=== PATIENT | female | born 1965 | race Caucasian/White ===

== ENCOUNTER → 2016-06-24 | Outpatient (CLI) | payer OTHER ==
[~2016-06-24] MED LIST: ALLE50TA PO; AMLO5TAB2 PO; AMLO5TAB22 PO; DIPH2%T PO; HYDR12.56 PO; HYDR12.57 PO; IBUP800T23 PO; LOSA50TA PO; MULT-65 PO; MULTTAB67 PO; RANI150 PO; RANI150T PO
[2016-06-24 11:50] LABS: AUTOMATED NEUTROPHIL # 4.7 TH/MM3 (1.8-7.7); BASOPHIL % 0.4 % (0.0-2.0); EOSINOPHIL # 0.2 TH/MM3 (0-0.4); EOSINOPHIL % 2.5 % (0.0-4.0); HEMATOCRIT 43.7 % (35.0-46.0); HEMO FLAGS DIFF FINAL; LYMPH % 32.3 % (9.0-44.0); LYMPHOCYTE # 2.7 TH/MM3 (1.0-4.8); MEAN CELL VOLUME 94.6 FL (80.0-100.0); MEAN CORPUSCULAR HEMOGLOBIN 30.5 PG (27.0-34.0); MEAN CORPUSCULAR HGB CONC 32.2 % (32.0-36.0); MONO % 7.4 % (0.0-8.0); NEUT % 57.4 % (16.0-70.0); PLATELET COUNT 223 TH/MM3 (150-450); RED BLOOD COUNT 4.62 MIL/MM3 (4.00-5.30); RED CELL DISTRIBUTION WIDTH 12.6 % (11.6-17.2); WHITE BLOOD COUNT 8.2 TH/MM3 (4.0-11.0)
[2016-06-24 13:11] LABS: ALKALINE PHOSPHATASE 91 U/L (45-117); ALT (GPT) 26 U/L (10-53); ANION GAP 10 MEQ/L (5-15); AST (GOT) 13 U/L (15-37); BICARBONATE 25.3 MEQ/L (21.0-32.0); BLOOD UREA NITROGEN 14 MG/DL (7-18); CHLORIDE 101 MEQ/L (98-107); FREE T4 1.19 NG/DL (0.76-1.46); GLOMERULAR FILTRATION RATE 66 ML/MIN (>89); GLUCOSE,FASTING 104 MG/DL (74-99); HDL CHOLESTEROL 44.4 MG/DL (40.0-60.0); LDL CHOLESTEROL 91 MG/DL (0-99); POTASSIUM 3.6 MEQ/L (3.5-5.1); SODIUM (NA) 136 MEQ/L (136-145); TOTAL BILIRUBIN ADULT 0.3 MG/DL (0.2-1.0)
[2016-06-24 13:11] LABS: BLOOD, URINE NEG (NEG); GLUCOSE,URINE NEG (NEG); HYALINE CAST, URINE 4 /lpf (RARE); KETONE, URINE NEG (NEG); NITRITE,URINE NEG (NEG); PH, URINE 5.5 (5.0-8.5); SQUAMOUS EPITHELIAL CELL URINE 1 /hpf (0-5); URINE COLOR YELLOW (YELLW/STRAW)
[2016-06-24 13:12] LABS: COMMENT (UR) CULT NOT INDICATED; CULTURE IF INDICATED CULT NOT INDICATED
== END ==
LOC: OLAB 11:26
PROVIDERS: ATTEND Nurse Practitioner Family
DX: I10 Essential (primary) hypertension (principal); F41.9 Anxiety disorder, unspecified; Z68.35 Body mass index [BMI] 35.0-35.9, adult
CPT/HCPCS: 80053; 80061; 81001; 84439; 84443; 84480; 85025

== ENCOUNTER 2016-11-08 15:24 | Observation (INO) | payer OTHER ==
[~2016-11-08] VITALS: Ht 172.7 cm; Wt 90.0 kg
[2016-11-08] VITALS (8 sets, daily range): BP systolic 132–203; BP diastolic 70–102; PULSE 80–117; RESP 18–20; TEMP 98.2–98.4; O2SAT 95–99
[~2016-11-08 15:24] MED LIST changes: -AMLO5TAB22 PO; -DIPH2%T PO; -HYDR12.56 PO; -IBUP800T23 PO; -MULT-65 PO; -RANI150 PO
--- NOTE | 2016-11-08 15:56 | PD ---
HPI Chief Complaint: Respiratory Distress Time Seen by Provider: 15:55 Travel History International Travel<30 days: No Contact w/Intl Traveler<30days: No Traveled to known affect area: No History of Present Illness HPI 51-year-old female with history of hypertension, presents to emergency department for evaluation of severe, sharp, stabbing, excruciating chest pain. Patient states it woke her up at 4 AM this morning from her sleep. She states she was able to go back to sleep until 6 AM but has returned and worsened throughout the course of the day. She states it starts it is mostly substernal but will occasionally radiate to each of her shoulders or to her right shoulder blade. States it is exacerbated with inspiration and mildly relieved with expiration. Denies any fever or chills. No recent illnesses. No nausea or vomiting. Patient does not recall any episodes of lightheadedness or nausea associated with this. States it is the worst pain she has ever felt and she has never experienced anything like this. No history of DVT. No recent travel. Patient states she does smoke tobacco cigarettes 1-1/2 packs per day. States that her father had had a heart attack in the past as well as her brother. She has no other symptoms to report. PFSH Past Medical History Diminished Hearing: No Headaches: Yes Hypertension: Yes Tetanus Vaccination: < 5 Years Influenza Vaccination: Yes ?: Not LMP: 10/2016 Menopausal: Yes : 3 Para: 2 Social History Alcohol Use: Yes (rarely) Tobacco Use: Yes (1 ppd) Substance Use: No Allergies-Medications (Allergen,Severity, Reaction): Coded Allergies: Lisinopril (Verified Allergy, Intermediate, Cough, 07/13/16) Reported Meds & Prescriptions Reported Meds & Active Scripts Active Hydrochlorothiazide 12.5 Mg Cap 12.5 Mg PO DAILY Losartan (Losartan Potassium) 50 Mg Tab 50 Mg PO DAILY Amlodipine (Amlodipine Besylate) 5 Mg Tab 5 Mg PO DAILY Reported Ranitidine (Ranitidine HCl) 150 Mg Tab 150 Mg PO BID Multiple Vitamin 1 Tab 1 Tab PO DAILY Review of Systems Except as stated in HPI: all other systems reviewed are Neg Physical Exam Narrative GENERAL: Well-nourished female patient, sitting up in bed, in mild distress secondary to pain SKIN: Focused skin assessment warm/dry. HEAD: Atraumatic. Normocephalic. EYES: Pupils equal and round. No scleral icterus. No injection or drainage. ENT: No nasal bleeding or discharge. Mucous membranes pink and moist. NECK: Trachea midline. No JVD. CARDIOVASCULAR: Regular rate and rhythm. No murmur appreciated. RESPIRATORY: No accessory muscle use. Clear to auscultation. Breath sounds equal bilaterally. GASTROINTESTINAL: Abdomen soft, non-tender, nondistended. Hepatic and splenic margins not palpable. MUSCULOSKELETAL: No obvious deformities. No clubbing. No cyanosis. No edema. NEUROLOGICAL: Awake and alert. No obvious cranial nerve deficits. Motor grossly within normal limits. Normal speech. PSYCHIATRIC: Appropriate mood and affect; insight and judgment normal. Data Data Last Documented VS Vital Signs Date Time Temp Pulse Resp B/P Pulse Ox O2 Delivery O2 Flow Rate FiO2 11/08/16 18:49 16 11/08/16 18:35 90 176/79 98 Room Air 11/08/16 15:27 98.2 Orders Electrocardiogram (11/08/16 15:59) Basic Metabolic Panel (Bmp) (11/08/16 15:59) Ckmb (Isoenzyme) Profile (11/08/16 15:59) Complete Blood Count With Diff (11/08/16 15:59) D-Dimer (11/08/16 15:59) Magnesium (Mg) (11/08/16 15:59) Prothrombin Time / Inr (Pt) (11/08/16 15:59) Act Partial Throm Time (Ptt) (11/08/16 15:59) Troponin I (11/08/16 15:59) Chest, Single Ap (11/08/16 15:59) Ecg Monitoring (11/08/16 15:59) Bilateral Bp Monitoring (11/08/16 15:59) Iv Access Insert/Monitor (11/08/16 15:59) Oximetry (11/08/16 15:59) Oxygen Administration (11/08/16 15:59) Aspirin Chew (Aspirin Chew) (11/08/16 16:00) Sodium Chloride 0.9% Flush (Ns Flush) (11/08/16 16:00) Nitroglycerin Sl (Nitrostat Sl) (11/08/16 16:00) Sodium Chlorid 0.9% 500 Ml Inj (Ns 500 M (11/08/16 16:00) Morphine Inj (Morphine Inj) (11/08/16 16:15) Ondansetron Inj (Zofran Inj) (11/08/16 16:15) Ct Pulmonary Angiogram (11/08/16 ) Electrocardiogram (11/08/16 ) Morphine Inj (Morphine Inj) (11/08/16 18:00) Iohexol 350 Inj (Omnipaque 350 Inj) (11/08/16 18:17) Admit Order (Ed Use Only) (11/08/16 18:57) Activity Bed Rest With Brp (11/08/16 18:57) Vital Signs (Adult) Q4H (11/08/16 18:57) Cardiac Rhythm .As Directed (11/08/16 18:57) Notify Dr: Other .PRN (11/08/16 18:57) Notify Parameters (11/08/16 18:57) Resp Oxygen Nasal Cannula (11/08/16 ) Diet Npo (11/09/16 Breakfast) Ckmb (Isoenzyme) Profile (11/08/16 19:30) Ckmb (Isoenzyme) Profile (11/08/16 22:30) Troponin I (11/08/16 19:30) Troponin I (11/08/16 22:30) Electrocardiogram (11/08/16 19:30) Electrocardiogram (11/08/16 22:30) ^ Obtain (11/08/16 18:57) Sodium Chloride 0.9% Flush (Ns Flush) (11/08/16 19:00) Sodium Chloride 0.9% Flush (Ns Flush) (11/08/16 21:00) Acetaminophen (Tylenol) (11/08/16 19:00) Ondansetron Inj (Zofran Inj) (11/08/16 19:00) Nitroglycerin Sl (Nitrostat Sl) (11/08/16 19:00) Hide Puller / Telemetry LINO.Q8H (11/08/16 18:57) Labs Laboratory Tests Test 11/08/16 11/08/16 16:30 17:00 White Blood Count 13.3 TH/MM3 Red Blood Count 4.92 MIL/MM3 Hemoglobin 16.0 GM/DL Hematocrit 48.0 % Mean Corpuscular Volume 97.4 FL Mean Corpuscular Hemoglobin 32.5 PG Mean Corpuscular Hemoglobin 33.4 % Concent Red Cell Distribution Width 13.6 % Platelet Count 147 TH/MM3 Mean Platelet Volume 9.9 FL Neutrophils (%) (Auto) 68.5 % Lymphocytes (%) (Auto) 22.0 % Monocytes (%) (Auto) 8.3 % Eosinophils (%) (Auto) 0.8 % Basophils (%) (Auto) 0.4 % Neutrophils # (Auto) 9.1 TH/MM3 Lymphocytes # (Auto) 2.9 TH/MM3 Monocytes # (Auto) 1.1 TH/MM3 Eosinophils # (Auto) 0.1 TH/MM3 Basophils # (Auto) 0.1 TH/MM3 CBC Comment AUTO DIFF Differential Comment AUTO DIFF CONFIRMED Platelet Estimate LOW Platelet Morphology Comment NORMAL Red Cell Morphology Comment NORMAL Sodium Level 139 MEQ/L Potassium Level 3.5 MEQ/L Chloride Level 106 MEQ/L Carbon Dioxide Level 26.2 MEQ/L Anion Gap 7 MEQ/L Blood Urea Nitrogen 9 MG/DL Creatinine 0.74 MG/DL Estimat Glomerular Filtration 83 ML/MIN Rate Random Glucose 89 MG/DL Calcium Level 9.2 MG/DL Magnesium Level 2.2 MG/DL Total Creatine Kinase 85 U/L Troponin I LESS THAN 0.02 NG/ML Prothrombin Time 10.8 SEC Prothromb Time International 1.0 RATIO Ratio Activated Partial 31.9 SEC Thromboplast Time D-Dimer Quantitative (PE/DVT) 0.46 MG/L FEU [facility] Medical Decision Making Medical Screen Exam Complete: Yes Emergency Medical Condition: Yes Medical Record Reviewed: Yes Differential Diagnosis ACS versus chest wall pain versus PE versus pleuritic pain versus neoplasm versus bronchospasm versus indigestion Narrative Course 51-year-old female presents to emergency department for evaluation chest pain. Patient appears uncomfortable and in mild distress secondary to pain. She is given sublingual nitroglycerin and aspirin here. EKG is without ST elevation or depression and reviewed by my attending physician Dr. Alfaro. She has also assessed the patient. CBC is with mild leukocytosis of 13.3, otherwise without acute concern. BMP is without acute concern. Troponin is less than 0.02. D- dimer is 0.46. I discussed the patient with my attending who agrees with the before with CT pulmonary angiogram. This is complete and shows no pulmonary embolus. Pulmonary arteries are prominent which can be seen with pulmonary arterial hypertension. Mild emphysema without infiltrate. Chest x-ray showed left basal atelectasis. Patient will be admitted to the chest pain center for further evaluation. She is counseled on smoking cessation. She is in agreement at this plan of care. Diagnosis Primary Impression: Chest pain Qualified Code: R07.9 - Chest pain, unspecified type Additional Impressions: Hypertension Qualified Code: I10 - Essential hypertension Tobacco dependency Admitting Information Admitting Physician Requests: Observation Condition: Stable Lauren Naranjo Nov 08, 2016 15:55
[2016-11-08] MEDS ORDERED: SODIUM CHLORIDE 0.9% FLUSH 10 ML FLUSH IVF PRN (16:00)
[2016-11-08] MEDS ORDERED: SODIUM CHLORID 0.9% 500 ML INJ 500 ML IV ONE (16:00)
[2016-11-08] MEDS ORDERED: NITROGLYCERIN 0.4 MG SL 25 TABS/BTL SL ONE (16:00)
[2016-11-08] MEDS ORDERED: ASPIRIN 81 MG CHEW TAB PO ONE (16:00)
[2016-11-08] MEDS ORDERED: MORPHINE SULFATE 4 MG/ML INJ IV PUSH ONE ×2 (16:15→18:00)
[2016-11-08] MEDS ORDERED: ONDANSETRON HCL 4 MG/2 ML VIAL IV PUSH ONE (16:15)
--- NOTE | 2016-11-08 16:26 | RADRPT ---
EXAM DATE/TIME: 11/08/2016 16:16 [facility] COMPARISON: No previous studies available for comparison. INDICATIONS : Chest Pain MEDICAL HISTORY : Hypertension. SURGICAL HISTORY : None. ENCOUNTER: Initial ACUITY: 1 day PAIN SCORE: 7/10 LOCATION: Bilateral chest FINDINGS: A single view of the chest demonstrates left basilar atelectasis. Cardiomegaly. Old right clavicle fr acture. Osseous structures are intact. CONCLUSION: 1. Left basal atelectasis. Gui Rios MD on November 08, 2016 at 16:24 Board Certified Radiologist. This report was verified electronically.
[2016-11-08 16:52] LABS: AUTOMATED NEUTROPHIL # 9.1 TH/MM3 (1.8-7.7); BASOPHIL # 0.1 TH/MM3 (0-0.2); BASOPHIL % 0.4 % (0.0-2.0); EOSINOPHIL # 0.1 TH/MM3 (0-0.4); EOSINOPHIL % 0.8 % (0.0-4.0); LYMPHOCYTE # 2.9 TH/MM3 (1.0-4.8); MEAN CELL VOLUME 97.4 FL (80.0-100.0); MEAN CORPUSCULAR HEMOGLOBIN 32.5 PG (27.0-34.0); MEAN CORPUSCULAR HGB CONC 33.4 % (32.0-36.0); MONO % 8.3 % (0.0-8.0); NEUT % 68.5 % (16.0-70.0); PLATELET COUNT 147 TH/MM3 (150-450); RED BLOOD COUNT 4.92 MIL/MM3 (4.00-5.30); RED CELL DISTRIBUTION WIDTH 13.6 % (11.6-17.2); WHITE BLOOD COUNT 13.3 TH/MM3 (4.0-11.0)
[2016-11-08 17:05] LABS: HEMO FLAGS AUTO DIFF
[2016-11-08 17:08] LABS: ANION GAP 7 MEQ/L (5-15); BICARBONATE 26.2 MEQ/L (21.0-32.0); BLOOD UREA NITROGEN 9 MG/DL (7-18); CHLORIDE 106 MEQ/L (98-107); GLOMERULAR FILTRATION RATE 83 ML/MIN (>89); MAGNESIUM 2.2 MG/DL (1.5-2.5); POTASSIUM 3.5 MEQ/L (3.5-5.1); SODIUM (NA) 139 MEQ/L (136-145)
[2016-11-08 17:13] LABS: CREATINE KINASE 85 U/L (26-192)
[2016-11-08 17:30] LABS: APTT (PATIENT) 31.9 SEC (24.3-30.1); PROTHROMBIN TIME - PATIENT 10.8 SEC (9.8-11.6)
[2016-11-08 17:55] LABS: PLATELET ESTIMATE SMEAR LOW (NORMAL); PLATELET MORPHOLOGY NORMAL (NORMAL); SCAN/DIFF AUTO DIFF CONFIRMED
[2016-11-08] MEDS ORDERED: IOHEXOL 350 MG/ML 10 ML VIAL (for RAD DIAG) IV ONE (18:17)
--- NOTE | 2016-11-08 18:35 | RADRPT ---
EXAM DATE/TIME: 11/08/2016 18:13 [facility] COMPARISON: No previous studies available for comparison. INDICATIONS : Chest pain with shortness of breath; rule out pulmonary embolus. IV CONTRAST: 100 cc Omnipaque 350 (iohexol) IV RADIATION DOSE: 23.19 CTDIvol (mGy) MEDICAL HISTORY : Hypertension. SURGICAL HISTORY : None. ENCOUNTER: Initial ACUITY: 1 day PAIN SCALE: 8/10 LOCATION: chest TECHNIQUE: Volumetric scanning of the chest was performed using a pulmonary embolism protocol MIP images were re constructed. Using automated exposure control and adjustment of the mA and/or kV according to patien t size, radiation dose was kept as low as reasonably achievable to obtain optimal diagnostic quality images. FINDINGS: PULMONARY ARTERIES: No filling defects are seen in the pulmonary arteries through the segmental level. Pulmonary arteries are prominent. LUNGS: There is no consolidation or pneumothorax . No concerning pulmonary nodule is visualized. Mild emphy sema. PLEURAE: There is no pleural thickening or pleural effusion. MEDIASTINUM: There is good visualization of the great vessels of the middle mediastinum. No evidence of mediastin al or hilar adenopathy/mass. Heart enlarged. MUSCULOSKELETAL: Within normal limits for patient age. MISCELLANEOUS: The visualized upper abdominal organs demonstrate no acute abnormality. CONCLUSION: 1. No pulmonary embolus. 2. Pulmonary arteries are prominent which can be seen with pulmonary arterial hypertension. 3. Mild emphysema without infiltrate. Gui Rios MD on November 08, 2016 at 18:30 Board Certified Radiologist. This report was verified electronically.
[2016-11-08] MEDS ORDERED: NITROGLYCERIN 0.4 MG SL 25 TABS/BTL SL PRN (19:00)
[2016-11-08] MEDS ORDERED: SODIUM CHLORIDE 0.9% FLUSH 10 ML FLUSH IV FLUSH PRN (19:00)
[2016-11-08] MEDS ORDERED: ACETAMINOPHEN 500 MG CPLT PO PRN (19:00)
[2016-11-08] MEDS ORDERED: ONDANSETRON HCL 4 MG/2 ML VIAL IV PRN (19:00)
[2016-11-08 20:56] LABS: CREATINE KINASE 68 U/L (26-192)
[2016-11-08] MEDS ORDERED: MORPHINE SULFATE 4 MG/ML INJ IV PRN (22:45)
[2016-11-08] MEDS ORDERED: ACETAMINOPHEN 325 MG TAB PO PRN (22:45)
[2016-11-08] MEDS: SODIUM CHLORIDE 0.9% FLUSH 10 ML FLUSH IV FLUSH SCH (22:45)
[2016-11-08] MEDS: LORazepam 0.5 MG TAB PO PRN (22:45)
[2016-11-08] MEDS: ACETAMINOPHEN/HYDROcodone 325 MG/7.5 MG TAB PO PRN (22:46)
[2016-11-08 23:20] LABS: CREATINE KINASE 58 U/L (26-192)
[2016-11-09 02:50] VITALS: PULSE 78
[2016-11-09] MEDS ORDERED: RESP: ALBUTEROL 2.5 MG/3 ML NEB (PRN) NEB (07:45)
--- NOTE | 2016-11-09 07:50 | HHI.HP ---
HPI Primary Care Physician Non-Staff Chief Complaint Chest pain History of Present Illness 51-year-old female with history of hypertension and current tobacco smoker presents to emergency room for further evaluation of chest pain. Onset yesterday morning states pain was so severe it woke her from sleep. Onset approximately 4 AM. Location described as "shoulder to shoulder, epigastric and mid chest area did not feel like indigestion." Hurt to move, hurts to take a deep breath. No associated symptoms of nausea, vomiting, or diaphoresis. Pain described as sharp, stabbing, constant pain. No known precipitating or relieving factors. Never had pain similar in the past. Review of Systems General: No fatigue,weakness, fever, chills, recent illness HEENT: No SHIRLEY, no vision changes, no nasal congestion or drainage, no dysphasia CV: As stated above. Chest discomfort has improved. No palpitations, intermittent leg pain, dizziness RESP: No SOB, cough, wheeze, or recent URI GI: No nausea or vomiting, bowel changes, diarrhea, constipation, pain, distention, melena, blood in the stool. No change in appetite, no unintentional weight gain or weight loss : No dysuria, urgency, frequency, hematuria, or history of kidney stones EXT: No lower leg edema, no paraesthesias MS: No discomfort or change in ROM NEURO: No change in memory, dizziness, difficulty with balance, LOC, motor/ sensory deficits PSYCH: Endorses anxiety for "some time." Endorses she has spoke with PCP regarding anxiety but is hesitant about taking an additional daily medication. 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 No depression or suicidal ideation. SKIN: No rashes, no concerning lesions Past Family Social History Allergies: Coded Allergies: Lisinopril (Verified Allergy, Intermediate, Cough, 07/13/16) Past Medical History Hypertension, GERD Reported Medications Active Hydrochlorothiazide 12.5 Mg Cap 12.5 Mg PO DAILY Losartan (Losartan Potassium) 50 Mg Tab 50 Mg PO DAILY Amlodipine (Amlodipine Besylate) 5 Mg Tab 5 Mg PO DAILY Ranitidine (Ranitidine HCl) 150 Mg Tab 150 Mg PO BID Multiple Vitamin 1 Tab 1 Tab PO DAILY Active Ordered Medications Current Medications Medications (Trade) Dose Ordered Sig/Erika Route Start Time Stop Time Status Last Admin (Tylenol) 500 mg Q4H PRN PO 11/08/16 19:00 (Zofran Inj) 4 mg Q6H PRN IV 11/08/16 19:00 (Nitrostat Sl) 0.4 mg Q5M PRN SL 11/08/16 19:00 (Tylenol) 650 mg Q6H PRN PO 11/08/16 22:45 ([place] 7.5-325 Mg) 1 tab Q6H PRN PO 11/08/16 22:45 11/08/16 22:46 (Morphine Inj) 2 mg Q2H PRN IV 11/08/16 22:45 (Ativan) 0.5 mg Q6H PRN PO 11/08/16 22:45 11/08/16 22:45 (Aspirin) 325 mg DAILY PO 11/09/16 09:00 Family History Positive for early onset cardiovascular disease. Father from [place] at age 44, brother from [place] age 49. Social History No known diabetes or hyperlipidemia. Endorses hypertension. Current smoker 1-1 1/2 pack daily. Denies any alcohol or illegal drug use. Endorses sedentary lifestyle. She is a registered nurse at [employer]. Past cardiac testing None Physical Exam Vital Signs Vital Signs Date Time Temp Pulse Resp B/P Pulse Ox O2 Delivery O2 Flow Rate FiO2 11/09/16 02:50 78 11/09/16 00:00 18 11/08/16 22:59 98.2 86 18 160/76 97 11/08/16 22:40 84 11/08/16 20:37 98.4 85 18 132/85 95 11/08/16 18:49 16 11/08/16 18:49 18 11/08/16 18:35 90 18 176/79 98 Room Air 11/08/16 17:57 85 174/81 11/08/16 17:50 80 20 151/70 98 Room Air 11/08/16 16:53 97 Room Air 11/08/16 15:41 Room Air 11/08/16 15:27 98.2 117 18 203/102 99 Room Air Physical Exam GENERAL: Alert WN, WD, NAD, pleasant, obese female HEAD: NC, AT EYES: Sclera clear, conjunctiva without injection NECK: Supple, no masses, trachea midline CV: RRR, without murmur, rub, gallop, no JVD, S1-S2 no S3-S4. RESP: Clear lungs throughout bilateral, no crackles, wheeze, rhonchi, symmetrical chest rise, nonlabored, able to speak in full sentences ABD: Soft, NT, ND, no masses, positive bowel tones EXT: Pulses +24, no dependent edema MS: Normal tone 4 extremities, nontender, no obvious deformities, full range of motion NEURO: CN II through CN XII grossly intact, motor strength 5/5, gait WNL PSYCH: A+O 3, pleasant affect, tearful at times during interview, appropriate speech, appropriate mood and affect, insight and judgment SKIN: Normal turgor, normal texture, no lesions, no rashes Laboratory Laboratory Tests Test 11/08/16 11/08/16 11/08/16 11/08/16 16:30 17:00 19:51 22:45 White Blood Count 13.3 Red Blood Count 4.92 Hemoglobin 16.0 Hematocrit 48.0 Mean Corpuscular Volume 97.4 Mean Corpuscular Hemoglobin 32.5 Mean Corpuscular Hemoglobin 33.4 Concent Red Cell Distribution Width 13.6 Platelet Count 147 Mean Platelet Volume 9.9 Neutrophils (%) (Auto) 68.5 Lymphocytes (%) (Auto) 22.0 Monocytes (%) (Auto) 8.3 Eosinophils (%) (Auto) 0.8 Basophils (%) (Auto) 0.4 Neutrophils # (Auto) 9.1 Lymphocytes # (Auto) 2.9 Monocytes # (Auto) 1.1 Eosinophils # (Auto) 0.1 Basophils # (Auto) 0.1 CBC Comment AUTO DIFF Differential Comment AUTO DIFF CONFIRMED Platelet Estimate LOW Platelet Morphology Comment NORMAL Red Cell Morphology Comment NORMAL Sodium Level 139 Potassium Level 3.5 Chloride Level 106 Carbon Dioxide Level 26.2 Anion Gap 7 Blood Urea Nitrogen 9 Creatinine 0.74 Estimat Glomerular Filtration 83 Rate Random Glucose 89 Calcium Level 9.2 Magnesium Level 2.2 Total Creatine Kinase 85 68 58 Troponin I LESS THAN 0.02 LESS THAN 0.02 LESS THAN 0.02 Prothrombin Time 10.8 Prothromb Time International 1.0 Ratio Activated Partial 31.9 Thromboplast Time D-Dimer Quantitative (PE/DVT) 0.46 Result Diagram: 11/08/16 1630 11/08/16 1630 Imaging Last Impressions Chest X-Ray 11/08/16 1559 Signed Impressions: Service Date/Time: Tuesday, November 08, 2016 16:16 - CONCLUSION: 1. Left basal atelectasis. Gui Rios MD CT Angiography 11/08/16 0000 Signed Impressions: Service Date/Time: Tuesday, November 08, 2016 18:13 - CONCLUSION: 1. No pulmonary embolus. 2. Pulmonary arteries are prominent which can be seen with pulmonary arterial hypertension. 3. Mild emphysema without infiltrate. Gui Rios MD Course EKG Normal sinus rhythm, normal axis, no ST or T-segment changes Assessment and Plan Assessment and Plan #1 Chest painadmitted chest pain center. Ruled out with serial EKGs and cardiac enzymes. Monitored overnight. Seen and evaluated by Dr. Flor Delvalle. Discussed with patient next step would be to complete an exercise stress test. She is agreeable to plan of care. If stress test unremarkable will be discharged later this afternoon. #2 Hypertensioncontinue amlodipine, losartan, hydrochlorothiazide. Encouraged eating a low-sodium diet, performing daily exercise, and smoking cessation. #3 Tobacco usestrongly encouraged and stressed the importance of tobacco sensation. Ade Bonner Nov 09, 2016 07:50
[2016-11-09 08:00] VITALS: PULSE 72
[2016-11-09 08:02] VITALS: BP 160/96; PULSE 90; RESP 21; TEMP 97.9; O2SAT 94
[2016-11-09] MEDS ORDERED: amLODIPine BESYLATE 5 MG TAB PO SCH (09:00)
[2016-11-09] MEDS ORDERED: FAMOTIDINE 20 MG TAB PO SCH (09:00)
[2016-11-09] MEDS ORDERED: HYDROCHLOROTHIAZIDE 12.5 MG CAP PO SCH (09:00)
[2016-11-09] MEDS ORDERED: ASPIRIN 325 MG TAB PO SCH (09:00)
[2016-11-09] MEDS ORDERED: LOSARTAN 50 MG TAB PO SCH (09:00)
[2016-11-09] MEDS ORDERED: MULTIVITAMIN TAB PO SCH (09:00)
[2016-11-09] MEDS: LORazepam 0.5 MG TAB PO PRN (09:12)
[2016-11-09] MEDS: SODIUM CHLORIDE 0.9% FLUSH 10 ML FLUSH IV FLUSH SCH (09:13)
[2016-11-09] MEDS: ACETAMINOPHEN/HYDROcodone 325 MG/7.5 MG TAB PO PRN (09:13)
--- NOTE | 2016-11-09 09:19 | HHI.DCPOC ---
Discharge Care Plan Diagnosis: (1) Chest wall pain (2) Tobacco abuse (3) Anxiety (4) Hypertension Goals to Promote Your Health * To prevent worsening of your condition and complications * To maintain your health at the optimal level Directions to Meet Your Goals Take your medications as prescribed Follow your dietary instruction Follow activity as directed Keep your appointments as scheduled Take your immunizations and boosters as scheduled If your symptoms worsen call your PCP, if no PCP go to Urgent Care Center or Emergency Room Smoking is Dangerous to Your Health. Avoid second hand smoke Call the 24-hour hour crisis hotline for domestic abuse at Ade Bonner Nov 09, 2016 09:19
--- NOTE | 2016-11-09 20:39 | EKG ---
Date Performed: 11/08/2016 Time Performed: 17:58:29 PTAGE: 51 years EKG: Sinus rhythm NORMAL ECG Since PREVIOUS TRACING , no significant change noted PREVIOUS TRACIN11/08/2016 15.47 DOCTOR: Flor Delvalle Interpretating Date/Time 11/09/2016 20:38:00
--- NOTE | 2016-11-09 20:42 | EKG ---
Date Performed: 11/08/2016 Time Performed: 23:06:23 PTAGE: 51 years EKG: Sinus rhythm NORMAL ECG Since PREVIOUS TRACING , no significant change noted PREVIOUS TRACIN11/08/2016 20.46 DOCTOR: Flor Delvalle Interpretating Date/Time 11/09/2016 20:41:12
--- NOTE | 2016-11-09 20:42 | EKG ---
Date Performed: 11/08/2016 Time Performed: 20:46:46 PTAGE: 51 years EKG: Sinus rhythm NORMAL ECG Since PREVIOUS TRACING , no significant change noted PREVIOUS TRACIN11/08/2016 17.58 DOCTOR: Flor Delvalle Interpretating Date/Time 11/09/2016 20:40:14
--- NOTE | 2016-11-09 20:43 | TR ---
Date Performed: 11/09/2016 Time Performed: 08:24:11 DOCTOR: Flor Delvalle DRUG LIST: CLINICAL HISTORY: REASON FOR TEST: Chest pain/SOB REASON FOR ENDING: OBSERVATION: CONCLUSION: [place]on protocol completed. Stopped sec to exceeding target heart rate and leg fatigue . Maximum HU=364 Target HR Achieved=92.0 Maximum AS=184/90 Total Exercise Time=4:31. No reprod chest discomfort. Rare PVC. No st t segment changes to sugg ischemai. Fair exercise tolerance. Normal bp re sponse. Recovery quick and unremarkable. COMMENTS:
--- NOTE | 2016-11-10 16:20 | EKG ---
Date Performed: 11/08/2016 Time Performed: 15:47:00 PTAGE: 51 years EKG: Sinus rhythm NORMAL ECG NO PREVIOUS TRACING DOCTOR: Flor Delvalle Interpretating Date/Time 11/10/2016 16:18:17
== END 2016-11-09 12:09 | disposition home or self-care (01) ==
LOC: NEPC 15:24 → NEDA 19:00 → NEPGCP 20:07
DX: R07.89 Other chest pain (principal); I10 Essential (primary) hypertension; D72.829 Elevated white blood cell count, unspecified; K21.9 Gastro-esophageal reflux disease without esophagitis; F17.200 Nicotine dependence, unspecified, uncomplicated; Z88.8 Allergy status to other drugs, medicaments and biological substances; Z82.49 Family history of ischemic heart disease and other diseases of the circulatory system
CPT/HCPCS: 71010; 71275; 80048; 82550; 83735; 84484; 85025; 85379; 85610; 85730; 93005; 93017; 96361; 96374; 96375; 96376; 99285; G0378; J2270; J2405; J7040; Q9967